=== PATIENT | female | born 1960 | race Caucasian/White ===

== ENCOUNTER 2017-01-14 06:46 | Emergency (ER) | payer OTHER ==
[~2017-01-14] VITALS: Ht 170.2 cm; Wt 92.5 kg
[~2017-01-14 06:46] MED LIST: SYNT175T PO
[2017-01-14 06:48] VITALS: BP 139/82; PULSE 89; RESP 16; TEMP 97.8; O2SAT 95
[2017-01-14] MEDS ORDERED: ASPI1TAB93 PO (07:12)
[2017-01-14] MEDS ORDERED: diphenhydrAMINE HCL 50 MG/ML VIAL IV PUSH ONE (07:15)
[2017-01-14] MEDS ORDERED: PROCHLORPERAZINE INJ 10 MG/2 ML VIAL IV PUSH ONE (07:15)
[2017-01-14] MEDS ORDERED: SODIUM CHLOR 0.9% 1000 ML INJ 1,000 ML IV ONE (07:15)
--- NOTE | 2017-01-14 07:40 | PD ---
HPI Chief Complaint: Headache Time Seen by Provider: 07:03 Travel History International Travel<30 days: No Contact w/Intl Traveler<30days: No Traveled to known affect area: No History of Present Illness HPI Patient is a 56 year old female who comes in complaining of headache. She says she has history of migraines, but this one is different. She says it started with severe pain to the back of her head that wrapped around the sides, 2 days ago. She says that it has been improving, but she feels like she needs a CT scan to make sure she does not have a bleed. She is a respiratory therapist in the ICU. She says yesterday she had some nausea and vomiting, which is typical of her migraines. She denies blurred vision or dizziness, but says she feels weak all over. She has been taking Ibuprofen and Excedrin with some relief. She says that overall she is getting better, but is just nervous since it started with such severe pain. She has not had any fevers. She denies any head trauma. PFSH Past Medical History Cancer: No Cardiovascular Problems: No Diabetes: No Endocrine: No Gastrointestinal Disorders: Yes (ESOPH. STRICTURE HX) Genitourinary: No Headaches: Yes Hepatitis: No Hiatal Hernia: No Immune Disorder: No Musculoskeletal: No Neurologic: Yes (MIGRAINES) Psychiatric: No Reproductive: Yes (FIBROIDS) Respiratory: No Migraines: Yes Thyroid Disease: Yes (HYPO) Tetanus Vaccination: < 5 Years Influenza Vaccination: Yes ?: Not Dilation and Curettage (D&C): Yes Past Surgical History AICD: No Gynecologic Surgery: Yes (D&C) Hysterectomy: Yes Joint Replacement: No Pacemaker: No Social History Alcohol Use: No Tobacco Use: No Substance Use: No Allergies-Medications (Allergen,Severity, Reaction): Coded Allergies: No Known Allergies (Verified , 01/14/17) Reported Meds & Prescriptions Reported Meds & Active Scripts Active Reported Excedrin Extra Strength (Jlzayrh-Cunsslxhfehlx-Elrwltzg) Unknown Strength Tab Unknown Dose PO DIRECTED PRN Synthroid (Levothyroxine Sodium) 175 Mcg Tab 175 Mcg PO DAILY Review of Systems Except as stated in HPI: all other systems reviewed are Neg General / Constitutional: No: Fever, Chills Eyes: No: Blurred Vision HENT: Positive: Headaches, No: Congestion Cardiovascular: No: Chest Pain or Discomfort Respiratory: No: Shortness of Breath Gastrointestinal: Positive: Nausea, Vomiting, No: Abdominal Pain Genitourinary: No: Dysuria Musculoskeletal: No: Myalgias, Edema Skin: No Rash, No Change in Pigmentation Neurologic: Positive: Weakness, No: Dizziness, Syncope Physical Exam Narrative GENERAL: Awake and alert, in no acute distress. SKIN: Focused skin assessment warm/dry. HEAD: Atraumatic. Normocephalic. EYES: Pupils equal and round and reactive. No scleral icterus. EOMI. ENT: Mucous membranes pink and moist. NECK: Trachea midline. No JVD. CARDIOVASCULAR: Regular rate and rhythm. No murmur appreciated. RESPIRATORY: No accessory muscle use. Clear to auscultation. Breath sounds equal bilaterally. GASTROINTESTINAL: Abdomen soft, non-tender, nondistended. MUSCULOSKELETAL: No obvious deformities. No clubbing. No cyanosis. No edema. NEUROLOGICAL: Awake and alert. No obvious cranial nerve deficits. Motor grossly within normal limits. Normal speech. PSYCHIATRIC: Appropriate mood and affect; insight and judgment normal. Data Data Last Documented VS Vital Signs Date Time Temp Pulse Resp B/P (MAP) Pulse Ox O2 Delivery O2 Flow Rate FiO2 01/14/17 07:05 16 96 Room Air 01/14/17 06:48 97.8 89 139/82 (101) Orders Orders Iv Access Insert/Monitor (01/14/17 07:08) Ct Brain W/O Iv Contrast(Rout) (01/14/17 ) Sodium Chlor 0.9% 1000 Ml Inj (Ns 1000 M (01/14/17 07:15) Diphenhydramine Inj (Benadryl Inj) (01/14/17 07:15) Prochlorperazine Inj (Compazine Inj) (01/14/17 07:15) MDM Medical Decision Making Medical Screen Exam Complete: Yes Emergency Medical Condition: Yes Medical Record Reviewed: Yes Differential Diagnosis tension headache vs migraine vs ICH vs dehydration Narrative Course Patient is a 56 year old female who comes in complaining of headache. Exam shows no neurologic abnormalities. Patient is concerned for bleeding and would like a CT head. CT head shows no acute abnormalities. We discussed the needed for an LP to completely rule out bleeding, but she declines at this time, which I feel is reasonable. Given IVF, Compazine and Benadryl with significant improvement in her symptoms. Patient will be discharged home. Advised to stay well hydrated and take Tylenol or Ibuprofen as needed for pain. Follow up with her primary care doctor and return to the ED as needed for any worsening symptoms. Diagnosis Primary Impression: Headache Qualified Codes: R51 - Headache Patient Instructions: Acute Headache (ED), General Instructions Additional Instructions: Drink plenty of fluids. Take tylenol or Ibuprofen as needed for pain. Follow up with your primary doctor. Return to the ED as needed for any worsening symptoms. Disposition: 01 DISCHARGE HOME Condition: Stable Radha Garcia MD Jan 14, 2017 07:40
--- NOTE | 2017-01-14 07:44 | RADRPT ---
EXAM DATE/TIME: 01/14/2017 07:31 [facility] COMPARISON: No previous studies available for comparison. INDICATIONS : Cephalgia. RADIATION DOSE: 64.68 CTDIvol (mGy) MEDICAL HISTORY : Hypertension. SURGICAL HISTORY : None. ENCOUNTER: Initial ACUITY: 2 days PAIN SCALE: 7/10 LOCATION: cranial TECHNIQUE: Multiple contiguous axial images were obtained of the head. Using automated exposure control and adj ustment of the mA and/or kV according to patient size, radiation dose was kept as low as reasonably a chievable to obtain optimal diagnostic quality images. DICOM format image data is available electro nically for review and comparison. FINDINGS: CEREBRUM: The ventricles are normal for age. No evidence of midline shift, mass lesion, hemorrhage or acute in farction. No extra-axial fluid collections are seen. POSTERIOR FOSSA: The cerebellum and brainstem are intact. The 4th ventricle is midline. The cerebellopontine angle i s unremarkable. EXTRACRANIAL: The visualized portion of the orbits is intact. SKULL: The calvaria is intact. No evidence of skull fracture. CONCLUSION: 1. No acute intracranial abnormality. Hair Hwang MD on January 14, 2017 at 7:40 Board Certified Radiologist. This report was verified electronically.
[2017-01-14 08:10] VITALS: BP 116/62; PULSE 72; RESP 16; O2SAT 99
[2017-01-14 09:45] VITALS: BP 107/75
== END 2017-01-14 09:46 | disposition home or self-care (01) ==
LOC: PHED 06:46
DX: R51 Headache (principal)
CPT/HCPCS: 70450; 96361; 96374; 96375; 99285; J0780; J1200; J7030

== ENCOUNTER → 2017-02-16 | Outpatient (CLI) | payer OTHER ==
[~2017-02-16] MED LIST changes: +ASPI1TAB93 PO
[2017-02-16 09:38] LABS: AUTOMATED NEUTROPHIL # 4.3 TH/MM3 (1.8-7.7); BASOPHIL % 0.6 % (0.0-2.0); EOSINOPHIL # 0.2 TH/MM3 (0-0.4); HEMATOCRIT 39.6 % (35.0-46.0); HEMO FLAGS DIFF FINAL; LYMPH % 21.7 % (9.0-44.0); LYMPHOCYTE # 1.4 TH/MM3 (1.0-4.8); MEAN CELL VOLUME 83.9 FL (80.0-100.0); MEAN CORPUSCULAR HGB CONC 34.5 % (32.0-36.0); MONO % 6.3 % (0.0-8.0); NEUT % 68.4 % (16.0-70.0); PLATELET COUNT 254 TH/MM3 (150-450); RED BLOOD COUNT 4.72 MIL/MM3 (4.00-5.30); RED CELL DISTRIBUTION WIDTH 15.2 % (11.6-17.2); WHITE BLOOD COUNT 6.3 TH/MM3 (4.0-11.0)
[2017-02-16 10:22] LABS: ALT (GPT) 29 U/L (10-53); ANION GAP 6 MEQ/L (5-15); AST (GOT) 13 U/L (15-37); BICARBONATE 28.3 MEQ/L (21.0-32.0); BLOOD UREA NITROGEN 11 MG/DL (7-18); CHLORIDE 105 MEQ/L (98-107); GLOMERULAR FILTRATION RATE 90 ML/MIN (>89); GLUCOSE,FASTING 86 MG/DL (74-99); POTASSIUM 4.3 MEQ/L (3.5-5.1); SODIUM (NA) 139 MEQ/L (136-145)
[2017-02-16 10:39] LABS: ALKALINE PHOSPHATASE 83 U/L (45-117); TOTAL BILIRUBIN ADULT 0.5 MG/DL (0.2-1.0)
== END ==
LOC: PLAB 07:42
PROVIDERS: ATTEND Family Medicine
DX: E03.9 Hypothyroidism, unspecified (principal); R00.0 Tachycardia, unspecified; M25.50 Pain in unspecified joint
CPT/HCPCS: 36415; 80053; 84436; 84443; 85025; 86038

== ENCOUNTER → 2017-04-14 | Outpatient (CLI) | payer OTHER ==
[2017-04-18 15:53] LABS: A FUMIGATUS LESS THAN 0.10 kU/L; A FUMIGATUS CLASS 0; A TENUIS LESS THAN 0 kU/L; A TENUIS CLASS 0; BERMUDA GRASS 0.12 kU/L; BIRCH 0.71 kU/L; BIRCH CLASS 2; C HERBARUM LESS THAN 0.10 kU/L; C HERBARUM CLASS 0; CAT DANDER LESS THAN 0.10 kU/L; CAT DANDER CLASS 0; COCKROACH 0.12 kU/L; CODFISH CLASS 0; CODFISH IGE LESS THAN 0.10 kU/L; COMMON PIGWEED LESS THAN 0.10 kU/L; COMMON PIGWEED CLASS 0; COMMON RAGWEED 0.62 kU/L; COMMON RAGWEED CLASS 1; COWS MILK IGE 0.17 kU/L; D FARINAE 0.68 kU/L; D FARINAE CLASS 1; D PTERONYSSINUS LESS THAN 0.10 kU/L; D PTERONYSSINUS CLASS 0; DOG DANDER LESS THAN 0.10 kU/L; DOG DANDER CLASS 0; EGG WHITE LESS THAN 0.10 kU/L; EGG WHITE CLASS 0; IMMUNOGLOBULIN E 178 kU/L (114 OR LESS); MAPLE (BOX ELDER) 0.14 kU/L; MOUNTAIN CEDAR 0.12 kU/L; NETTLE LESS THAN 0.10 kU/L; NETTLE CLASS 0; OAK WHITE 0.15 kU/L; P NOTATUM LESS THAN 0.10 kU/L; P NOTATUM CLASS 0; PEANUT 0.11 kU/L; PECAN TREE 0.77 kU/L; PECAN TREE CLASS 2; SCALLOP LESS THAN 0.10 kU/L; SCALLOP CLASS 0; SESAME SEED 0.16 kU/L; SHEEP SORREL LESS THAN 0.10 kU/L; SHEEP SORREL CLASS 0; SHRIMP LESS THAN 0.10 kU/L; SHRIMP CLASS 0; SOYBEAN LESS THAN 0.10 kU/L; SOYBEAN CLASS 0; TIMOTHY GRASS 0.12 kU/L; WALNUT LESS THAN 0.10 kU/L; WALNUT CLASS 0; WHEAT 0.14 kU/L
== END ==
LOC: CLAB 14:33
PROVIDERS: ATTEND Family Medicine
DX: T78.40XA Allergy, unspecified, initial encounter (principal)
CPT/HCPCS: 36415; 82785; 86003